=== PATIENT | female | born 1995 | race Caucasian/White ===

== ENCOUNTER 2019-09-23 19:43 | Emergency (ER) | payer OTHER ==
[~2019-09-23] VITALS: Ht 160 cm; Wt 70.6 kg
[2019-09-23 19:48] VITALS: BP 149/83; PULSE 79; RESP 18; Ht 160 cm; Wt 70.6 kg
== END 2019-09-23 22:44 | disposition home or self-care (01) ==
LOC: FTE 19:43
DX: R55 Syncope and collapse (principal)
CPT/HCPCS: 80053; 81001; 81025; 85025; 93005; Z7502